=== PATIENT | male | born 1975 | race American Indian/Alaskan Native ===

== ENCOUNTER 2016-08-26 10:38 | Emergency (ER) | payer SELFPAY ==
--- NOTE | 2016-08-26 16:34 | Emergency Department Report ---
HPI - General Chief Complaint: Medical Clearance Time Seen by Provider: 08/26/16 16:20 - HPI HPI: 40-year-old male presents today for a refill for metoprolol 50 mg by mouth twice a day. Patient states that he ran out yesterday and his appointment with [facility] set for September. Patient would like one month supply to last him until then. Denies any medical complaints. Denies fever, chills, nausea, vomiting, chest pain, shortness of breath, abdominal pain. ED Past Medical Hx - Past Medical History Previous Medical History?: Yes Hx Hypertension: Yes Hx Diabetes: Yes - Surgical History Past Surgical History?: No - Social History Smoking Status: Never Smoker Substance Use Type: Alcohol, Prescribed - Medications Home Medications: Home Medications Medication Instructions Recorded Confirmed Last Taken Type Lisinopril [Zestril] 5 mg PO QDAY 07/08/16 07/08/16 Unknown History Metoprolol [Lopressor TAB] 50 mg PO BID #60 tablet 08/26/16 Unknown Rx ED Review of Systems ROS: Stated complaint: HIGH BP MED REFILL Other details as noted in HPI Constitutional: denies: chills, fever, malaise Eyes: denies: eye pain ENT: denies: ear pain, throat pain, congestion Respiratory: denies: cough, shortness of breath, wheezing Cardiovascular: denies: chest pain, palpitations Endocrine: no symptoms reported Gastrointestinal: denies: abdominal pain, nausea, vomiting Skin: denies: rash Neurological: denies: headache, weakness Physical Exam - Physical Exam Vital Signs: Vital Signs 08/26/16 11:10 Temperature 98.1 F Pulse Rate 82 Blood Pressure 148/96 O2 Sat by Pulse 100 Oximetry Physical Exam: GENERAL: The patient is well-developed and well-nourished. Patient is in NAD. HEAD: Normocephalic. Atraumatic. CHEST/LUNGS: Clear to auscultation throughout. HEART/CARDIOVASCULAR: Regular rate and rhythm. ABDOMEN: Abdomen is soft, nontender. No guarding or rebound tenderness. EXTREMITIES: Peripheral pulses intact. Capillary refill less than 2 seconds. NEURO: Alert and oriented x 3. Normal gait. ED Course Vital Signs 08/26/16 11:10 Temperature 98.1 F Pulse Rate 82 Blood Pressure 148/96 O2 Sat by Pulse 100 Oximetry ED Medical Decision Making - Lab Data Vital Signs 08/26/16 11:10 Temperature 98.1 F Pulse Rate 82 Blood Pressure 148/96 O2 Sat by Pulse 100 Oximetry - Medical Decision Making 40-year-old female presents today for metoprolol refill. Explained to the patient that this will become last time we will be refilling his blood pressure medication. Patient was given a one-month supply and is recommended to follow up with primary care provider. Patient is in no acute distress at this time. He will be discharged home and is encouraged to follow up with a primary care provider. He is encouraged to return to the emergency room for any worsening symptoms. Critical care attestation.: If time is entered above; I have spent that time in minutes in the direct care of this critically ill patient, excluding procedure time. ED Disposition Clinical Impression: Medication refill Disposition: DISCHARGED TO HOME OR SELFCARE Is pt being admited?: No Does the pt Need Aspirin: No Condition: Stable Instructions: Hypertension (ED) Additional Instructions: Follow up with primary care provider. Return to the emergency department if symptoms worsen. Prescriptions: Metoprolol [Lopressor TAB] 50 mg PO BID #60 tablet Referrals: PRIMARY CARE [Primary Care Provider] - 3-5 Days [facility] [Outside] - 3-5 Days Forms: Work/School Release Form(ED) Time of Disposition: 16:37
[2016-08-26 16:48] VITALS: BP 150/82
== END 2016-08-26 16:48 | disposition home or self-care (01) ==
LOC: ED 10:38
DX: Z76.0 Encounter for issue of repeat prescription (principal); I10 Essential (primary) hypertension; E11.9 Type 2 diabetes mellitus without complications
CPT/HCPCS: 99282

== ENCOUNTER 2017-11-30 10:27 | Emergency (ER) | payer SELFPAY ==
[2017-11-30] MEDS ORDERED: LOPRESSOR PO ONE (12:35)
--- NOTE | 2017-11-30 12:44 | Emergency Department Report ---
- HPI History of Present Illness: This is a 41-year-old male with a history of blood pressure with takes Lopressor 50 mg twice a day presents here for medication refill. Patient states he ran out of his medication yesterday and has not taken it today. She states he missed his appointment with his primary care and does not have another appointment for another month. Patient brought in his empty bottle of current rx for Lopressor 50 mg. Patient denies any symptoms such as chest pain, shortness of breath, headache , dizziness, blurred vision. - ROS Review of Systems: As noted in HPI - Exam Vital Signs: Vital Signs 11/30/17 10:37 Temperature 98.7 F Pulse Rate 85 Respiratory 18 Rate Blood Pressure 180/100 O2 Sat by Pulse 100 Oximetry Physical Exam: GENERAL: Alert and oriented x3, no apparent distress, Normal Gait, atraumatic. HEAD: Head is normocephalic and a-traumatic. NECK: Supple. Non edematous, No lymphadenopathy or thyromegaly. No C-spine tenderness LUNGS: Symetrical with respiration, No wheezing, no rales or crackles, CTAB. HEART: S1, S2 present, regular rate and rhythm without murmur, no rubs, no gallops. Non tender to palpation SKIN: Warm and dry, No lesions, No ulceration or induration present. MSE screening note: Focused history and physical exam performed. Due to findings the following was ordered: <SERA CARVER A - Last Filed: 11/30/17 13:53> - Exam Vital Signs: Vital Signs 11/30/17 11/30/17 10:37 13:00 Temperature 98.7 F Pulse Rate 85 79 Respiratory 18 Rate Blood Pressure 180/100 158/96 O2 Sat by Pulse 100 Oximetry MSE screening note: Focused history and physical exam performed. Due to findings the following was ordered: <TRINH GLOVER P - Last Filed: 11/30/17 20:24> Chief Complaint: Medical Clearance Stated Complaint: MED RE FILL Time Seen by Provider: 11/30/17 12:33 ED Medical Decision Making - Medical Decision Making 41-year-old male presents for medication refill ED course: Patient received 1 dose of Lopressor in the ED to bring down blood pressure. Blood pressure dropped prior to the ED discharge. Discussed patient to take a second dose at his usual at night. Vital signs are normal patient is in no acute distress. <WENSERA A - Last Filed: 11/30/17 13:53> ED Disposition for MSE Is pt being admited?: No Does the pt Need Aspirin: No Time of Disposition: 12:54 <Isrrael CARVERARIAS A - Last Filed: 11/30/17 13:53> <TRINH GLOVER P - Last Filed: 11/30/17 20:24> Clinical Impression: Medication refill Disposition: TO HOME OR SELFCARE Condition: Stable Instructions: Metoprolol (By mouth), Hypertension (ED) Additional Instructions: Make sure to follow up with the primary care physician as discussed. Take all your medications as you've been prescribed. If you have any worsening symptoms or develop new symptoms please return to ED immediately. Prescriptions: Metoprolol [Lopressor TAB] 50 mg PO BID #60 tablet Referrals: PRIMARY CAREMD [Primary Care Provider] - 3-5 Days BRUNO FAN MD [Referring] - 3-5 Days [facility] [Outside] - 3-5 Days [facility] [Outside] - 3-5 Days Forms: Work/School Release Form(ED)
[2017-11-30 13:01] VITALS: BP 158/96
== END 2017-11-30 12:55 | disposition home or self-care (01) ==
LOC: ED 10:27
DX: Z76.0 Encounter for issue of repeat prescription (principal); I10 Essential (primary) hypertension
CPT/HCPCS: 99282

== ENCOUNTER 2019-07-17 14:39 | Emergency (ER) | payer SELFPAY ==
--- NOTE | 2019-07-17 14:56 | Emergency Department Report ---
Blank Doc - Documentation Documentation: 43-year-old male that presents with frequency urination and generalized weakne ss. This initial assessment/diagnostic orders/clinical plan/treatment(s) is/are subject to change based on patient's health status, clinical progression and re- assessment by fellow clinical providers in the ED. Further treatment and workup at subsequent clinical providers discretion. Patient/guardians urged not to elope from the ED as their condition may be serious if not clinically assessed and managed. Initial orders include: 1- Patient sent to [facility] for further evaluation and treatment 2- labs 3- UA
[2019-07-17 16:44] LABS: Bilirubin,Urine NEG (Negative); Blood,Urine NEG (Negative); Color,Urine Straw (Yellow); Protein,Urine <15 mg/dL mg/dL (Negative); Urobilinogen,Urine < 2.0 mg/dL (<2.0); WBC,Urine < 1.0 /HPF (0.0-6.0)
[2019-07-17 16:54] LABS: Basophils % (Auto) 0.3 % (0.0-1.8); Eosinophils # (Auto) 0.2 K/mm3 (0.0-0.4); Eosinophils % (Auto) 1.3 % (0.0-4.3); Hematocrit 50.1 % (35.5-45.6); Hemoglobin 16.7 gm/dl (11.8-15.2); Lymphocytes % (Auto) 17.1 % (13.4-35.0); Mean Corpuscular HGB Conc 33 % (32-34); Mean Corpuscular Volume 92 fl (84-94); Monocytes # (Auto) 0.7 K/mm3 (0.0-0.8); Monocytes % (Auto) 5.9 % (0.0-7.3); Platelet Count 289 K/mm3 (140-440); Red Blood Count 5.48 M/mm3 (3.65-5.03); Red Cell Distribution Width 13.5 % (13.2-15.2)
[2019-07-17 17:02] LABS: Calcium 9.6 mg/dL (8.4-10.2)
[2019-07-17] MEDS ORDERED: INSULIN REGULAR, HUMAN 100 UNITS/1 ML SUB-Q ONE (18:42)
[2019-07-17] MEDS ORDERED: SODIUM CHLORIDE 0.9% 1000 ML 2,000 ML IV ONE (18:43)
[2019-07-17] MEDS ORDERED: INSULIN REGULAR, HUMAN 100 UNITS/1 ML IV ONE (19:01)
--- NOTE | 2019-07-17 19:12 | Emergency Department Report ---
ED General Adult HPI - General Chief complaint: Urogenital-Male Stated complaint: FREQUENT URINATION Time Seen by Provider: 07/17/19 14:55 Source: patient Mode of arrival: Ambulatory Limitations: No Limitations - History of Present Illness Initial comments: Mr. Aragon is a very pleasant 43-year-old male with history of hypertension and diabetes mellitus type 2 presents with frequent urination and thirst for the past several days. He admits that he has not been eating "right". He denies blurry vision. Denies chest pain or abdominal pain. Gradual onset of symptoms. He has been compliant with metformin 500 mg twice a day. He does not take insulin at this time. He was diagnosed with diabetes 3-4 years ago. He is followed at the [facility]. He takes metoprolol for hypertension. He drinks alcohol once a week. 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 -: Gradual, days(s) (3+ days) Quality: constant Consistency: constant Improves with: none Worsens with: none Associated Symptoms: other (generalized weakness, frequent urination and thirst) - Related Data Home Medications Medication Instructions Recorded Confirmed Last Taken metFORMIN [Glucophage] 500 mg PO BID 09/04/16 09/04/16 Unknown Previous Rx's Medication Instructions Recorded Last Taken Type Insulin Aspart Prot/Aspart(Nf) 30 units SQ BID 30 Days vial 09/07/16 Unknown Rx [NovoLOG Mix 70/30 VIAL] Metoprolol [Lopressor TAB] 50 mg PO BID #60 tablet 11/30/17 Unknown Rx Ibuprofen [Motrin] 600 mg PO Q8H PRN #20 tablet 08/08/18 Unknown Rx methOCARBAMOL [Robaxin TAB] 500 mg PO Q6H PRN #15 tablet 08/08/18 Unknown Rx traMADoL [Ultram] 50 mg PO Q6HR PRN #12 tablet 08/08/18 Unknown Rx Metformin HCl [metFORMIN] 1,000 mg PO BID 30 Days #60 tablet 07/17/19 Unknown Rx Allergies Allergy/AdvReac Type Severity Reaction Status Date / Time No Known Allergies Allergy Verified 11/30/17 10:37 ED Review of Systems ROS: Stated complaint: FREQUENT URINATION Other details as noted in HPI Comment: All other systems reviewed and negative Constitutional: denies: fever, malaise Cardiovascular: denies: chest pain Endocrine: denies: excessive sweating Gastrointestinal: denies: abdominal pain, nausea, vomiting ED Past Medical Hx - Past Medical History Previous Medical History?: Yes Hx Hypertension: Yes Hx Congestive Heart Failure: No Hx Diabetes: Yes Hx Asthma: No Hx COPD: No Hx HIV: No - Family History Family history: hypertension - Social History Smoking Status: Never Smoker Substance Use Type: Alcohol (once a week) - Medications Home Medications: Home Medications Medication Instructions Recorded Confirmed Last Taken Type metFORMIN [Glucophage] 500 mg PO BID 09/04/16 09/04/16 Unknown History Insulin Aspart Prot/Aspart(Nf) 30 units SQ BID 30 Days vial 09/07/16 Unknown Rx [NovoLOG Mix 70/30 VIAL] Metoprolol [Lopressor TAB] 50 mg PO BID #60 tablet 11/30/17 Unknown Rx Ibuprofen [Motrin] 600 mg PO Q8H PRN #20 tablet 08/08/18 Unknown Rx methOCARBAMOL [Robaxin TAB] 500 mg PO Q6H PRN #15 tablet 08/08/18 Unknown Rx traMADoL [Ultram] 50 mg PO Q6HR PRN #12 tablet 08/08/18 Unknown Rx Metformin HCl [metFORMIN] 1,000 mg PO BID 30 Days #60 tablet 07/17/19 Unknown Rx ED Physical Exam - General Limitations: No Limitations General appearance: alert, in no apparent distress, other (appears well moist mucous membranes) - Head Head exam: Present: atraumatic, normocephalic - Eye Eye exam: Present: normal appearance - ENT ENT exam: Present: normal orophraynx, mucous membranes moist - Neck Neck exam: Present: normal inspection, full ROM - Respiratory Respiratory exam: Present: normal lung sounds bilaterally. Absent: respiratory distress, wheezes, rales, rhonchi - Cardiovascular Cardiovascular Exam: Present: regular rate, normal rhythm, normal heart sounds. Absent: systolic murmur, diastolic murmur, rubs, gallop - GI/Abdominal GI/Abdominal exam: Present: soft, normal bowel sounds. Absent: distended, tenderness, guarding, rebound - Rectal Rectal exam: Present: deferred - Extremities Exam Extremities exam: Present: normal inspection - Neurological Exam Neurological exam: Present: alert, oriented X3 - Psychiatric Psychiatric exam: Present: normal affect, normal mood - Skin Skin exam: Present: warm, dry, intact, normal color. Absent: rash ED Course Vital Signs 12/04/2707/17/19 07/17/19 14:55 18:18 18:20 Temperature 98.2 F Pulse Rate 85 Respiratory 18 14 12 Rate Blood Pressure 112/67 O2 Sat by Pulse 96 Oximetry 07/17/19 07/17/19 07/17/19 18:31 18:45 19:01 Temperature Pulse Rate 77 75 77 Respiratory 12 9 L 12 Rate Blood Pressure 131/78 131/78 131/78 O2 Sat by Pulse 99 96 99 Oximetry 07/17/19 07/17/19 07/17/19 19:15 19:31 19:45 Temperature Pulse Rate 77 80 75 Respiratory 10 L 12 12 Rate Blood Pressure 131/78 131/78 131/78 O2 Sat by Pulse 97 98 98 Oximetry 07/17/19 07/17/19 07/17/19 20:00 20:15 20:31 Temperature Pulse Rate 74 74 76 Respiratory 11 L 13 15 Rate Blood Pressure 125/83 125/83 O2 Sat by Pulse 98 98 100 Oximetry 07/17/19 07/17/19 07/17/19 20:45 21:01 21:15 Temperature Pulse Rate 75 74 73 Respiratory 11 L 10 L 10 L Rate Blood Pressure 125/83 125/83 125/83 O2 Sat by Pulse 99 99 100 Oximetry ED Medical Decision Making - Lab Data Result diagrams: 07/17/19 16:20 07/17/19 16:20 - Medical Decision Making Mr. Aragon presents with acute hyperglycemia, increase in anion gap 20, trace ketones. Treated with IV fluid therapy in the emergency department. Also given IV regular insulin. Mr. Aragon appears well hydrated. I have increased Metformin dose to 1000 mg BID. He understands that he will need an additional medication to address diabetes. He understands the need to alter his diet. He will f/u with [facility] next week. Critical care attestation.: If time is entered above; I have spent that time in minutes in the direct care of this critically ill patient, excluding procedure time. ED Disposition Clinical Impression: Acute hyperglycemia Disposition: DC-01 TO HOME OR SELFCARE Is pt being admited?: No Does the pt Need Aspirin: No Condition: Stable Instructions: Diabetes Mellitus Type 2 in Adults (ED) Prescriptions: Metformin HCl [metFORMIN] 1,000 mg PO BID 30 Days #60 tablet Referrals: ANASTACIO PICHARDO MD [Staff Physician] - 3-5 Days Forms: Work/School Release Form(ED)
[2019-07-17 20:20] VITALS: BP 125/83
== END 2019-07-17 22:55 | disposition home or self-care (01) ==
LOC: ED 14:39
DX: E11.65 Type 2 diabetes mellitus with hyperglycemia (principal); I10 Essential (primary) hypertension; Z79.899 Other long term (current) drug therapy
CPT/HCPCS: 36415; 80048; 81001; 82962; 85025; 96361; 96374; 99283; J7030; J1815

== ENCOUNTER 2019-07-31 11:44 | Inpatient (IN) | payer OTHER ==
--- NOTE | 2019-07-31 12:40 | Event Note ---
ED Screening Note Date of service: 07/31/19 Time: 12:37 ED Screening Note: Pt c/o urinary frequency and not feeling x 1 week DM2, compliant with metformin Denies CP/SOB here recently for the same This initial assessment/diagnostic orders/clinical plan/treatment(s) is/are subject to change based on patients health status, clinical progression and re- assessment by fellow clinical providers in the ED. Further treatment and workup at subsequent clinical providers discretion. Patient/guardian urged not to elope from the ED as their condition may be serious if not clinically assessed and managed. Initial orders include: MAIN labs
[2019-07-31 13:48] LABS: Basophils # (Auto) 0.1 K/mm3 (0.0-0.1); Basophils % (Auto) 0.7 % (0.0-1.8); Eosinophils # (Auto) 0.2 K/mm3 (0.0-0.4); Eosinophils % (Auto) 1.2 % (0.0-4.3); Hematocrit 46.2 % (35.5-45.6); Hemoglobin 15.9 gm/dl (11.8-15.2); Lymphocytes # (Auto) 2.3 K/mm3 (1.2-5.4); Mean Corpuscular HGB Conc 34 % (32-34); Mean Corpuscular Volume 90 fl (84-94); Monocytes # (Auto) 0.7 K/mm3 (0.0-0.8); Monocytes % (Auto) 5.4 % (0.0-7.3); Platelet Count 319 K/mm3 (140-440); Red Blood Count 5.15 M/mm3 (3.65-5.03); Red Cell Distribution Width 13.1 % (13.2-15.2)
[2019-07-31 14:04] LABS: Alanine Aminotransferase 16 units/L (7-56); Albumin 4.5 g/dL (3.9-5); BUN/Creatinine Ratio 17; Blood Urea Nitrogen 32 mg/dL (9-20); Calcium 9.6 mg/dL (8.4-10.2); Hemolysis Index 9
[2019-07-31] MEDS ORDERED: SODIUM CHLORIDE 0.9% 1000 ML 1,000 ML IV ONE ×3 (14:24→16:44)
[2019-07-31 14:25] LABS: Bilirubin,Urine NEG (Negative); Blood,Urine SM (Negative); Color,Urine Straw (Yellow); Mucus,Urine FEW /HPF; Protein,Urine <15 mg/dL mg/dL (Negative); Urobilinogen,Urine < 2.0 mg/dL (<2.0); WBC,Urine < 1.0 /HPF (0.0-6.0)
[2019-07-31] MEDS ORDERED: INSULIN REGULAR, HUMAN 100 UNITS/1 ML IV ONE (14:25)
--- NOTE | 2019-07-31 16:59 | Emergency Department Report ---
- General Chief complaint: Hyperglycemia Stated complaint: HYPERGLYCEMIA Time Seen by Provider: 07/31/19 12:36 Source: patient Mode of arrival: Ambulatory Limitations: No Limitations - History of Present Illness Initial comments: 43 year old male with a past medical history diabetes and hypertension presents to the hospital complaining of generalized weakness and continued polyuria and tingling to extremities. Patient feels like his sugar is high but does not have a glucometer to confirm his glucose. Patient was seen here July 27 with similar symptoms and reported compliance of metformin 500 mg twice a day. Metformin was increased to 1000 mg twice a day but he does not feel any better. Patient last took his medication last night without a dose today. He denies na usea, vomiting, fever, or dysuria. Contrary to insulin listed on August 2016 discharge patient denies being on insulin in the past. PMD none Severity scale (0 -10): 4 - Related Data Home Medications Medication Instructions Recorded Confirmed Last Taken metFORMIN [Glucophage] 500 mg PO BID 09/04/16 09/04/16 Unknown Previous Rx's Medication Instructions Recorded Last Taken Type Insulin Aspart Prot/Aspart(Nf) 30 units SQ BID 30 Days vial 09/07/16 Unknown Rx [NovoLOG Mix 70/30 VIAL] Metoprolol [Lopressor TAB] 50 mg PO BID #60 tablet 11/30/17 Unknown Rx Ibuprofen [Motrin] 600 mg PO Q8H PRN #20 tablet 08/08/18 Unknown Rx methOCARBAMOL [Robaxin TAB] 500 mg PO Q6H PRN #15 tablet 08/08/18 Unknown Rx traMADoL [Ultram] 50 mg PO Q6HR PRN #12 tablet 08/08/18 Unknown Rx Metformin HCl [metFORMIN] 1,000 mg PO BID 30 Days #60 tablet 07/17/19 Unknown Rx Allergies Allergy/AdvReac Type Severity Reaction Status Date / Time No Known Allergies Allergy Verified 11/30/17 10:37 ED Review of Systems ROS: Stated complaint: HYPERGLYCEMIA Other details as noted in HPI Comment: All other systems reviewed and negative ED Past Medical Hx - Past Medical History Previous Medical History?: Yes Hx Hypertension: Yes Hx Congestive Heart Failure: No Hx Diabetes: Yes Hx Asthma: No Hx COPD: No Hx HIV: No - Social History Smoking Status: Never Smoker Substance Use Type: None - Medications Home Medications: Home Medications Medication Instructions Recorded Confirmed Last Taken Type metFORMIN [Glucophage] 500 mg PO BID 09/04/16 09/04/16 Unknown History Insulin Aspart Prot/Aspart(Nf) 30 units SQ BID 30 Days vial 09/07/16 Unknown Rx [NovoLOG Mix 70/30 VIAL] Metoprolol [Lopressor TAB] 50 mg PO BID #60 tablet 11/30/17 Unknown Rx Ibuprofen [Motrin] 600 mg PO Q8H PRN #20 tablet 08/08/18 Unknown Rx methOCARBAMOL [Robaxin TAB] 500 mg PO Q6H PRN #15 tablet 08/08/18 Unknown Rx traMADoL [Ultram] 50 mg PO Q6HR PRN #12 tablet 08/08/18 Unknown Rx Metformin HCl [metFORMIN] 1,000 mg PO BID 30 Days #60 tablet 07/17/19 Unknown Rx ED Physical Exam - General Limitations: No Limitations - Other Other exam information: General: No acute distress Head: Atraumatic Eyes: normal appearance ENT: Moist mucous membranes Neck: Normal appearance, no midline tenderness Chest: Clear to auscultation bilaterally CV: Regular rate and rhythm Abdomen: Soft, normal bowel sounds, nontender, nondistended, no rebound or guarding Back: Normal inspection Extremity: Normal inspection infection, full range of motion Neuro: Alert O x 3, no facial asymmetry, speech clear, no gross motor sensory deficit Psych: Appropriate behavior Skin: No rash ED Course Vital Signs 07/31/19 07/31/19 07/31/19 12:37 14:32 14:35 Temperature 98.5 F 98.1 F Pulse Rate 73 81 Respiratory 18 18 Rate Blood Pressure 128/77 Blood Pressure 109/72 [Right] O2 Sat by Pulse 100 97 100 Oximetry 07/31/19 07/31/19 07/31/19 14:46 15:00 15:16 Temperature Pulse Rate 83 80 76 Respiratory 14 14 12 Rate Blood Pressure 109/72 119/65 119/65 Blood Pressure [Right] O2 Sat by Pulse 97 97 98 Oximetry ED Medical Decision Making - Lab Data Result diagrams: 07/31/19 13:08 07/31/19 13:08 Lab Results 07/31/19 07/31/19 07/31/19 Range/Units 12:22 12:41 13:08 WBC 13.5 H (4.5-11.0) K/mm3 RBC 5.15 H (3.65-5.03) M/mm3 Hgb 15.9 H (11.8-15.2) gm/dl Hct 46.2 H (35.5-45.6) % MCV 90 (84-94) fl MCH 31 (28-32) pg MCHC 34 (32-34) % RDW 13.1 L (13.2-15.2) % Plt Count 319 (140-440) K/mm3 Lymph % (Auto) 17.0 (13.4-35.0) % [place] % (Auto) 5.4 (0.0-7.3) % Eos % (Auto) 1.2 (0.0-4.3) % Baso % (Auto) 0.7 (0.0-1.8) % Lymph # 2.3 (1.2-5.4) K/mm3 [place] # 0.7 (0.0-0.8) K/mm3 Eos # 0.2 (0.0-0.4) K/mm3 Baso # 0.1 (0.0-0.1) K/mm3 Seg Neutrophils % 75.7 H (40.0-70.0) % Seg Neutrophils # 10.2 H (1.8-7.7) K/mm3 VBG pH (7.320-7.420) Sodium (137-145) mmol/L Potassium (3.6-5.0) mmol/L Chloride (98-107) mmol/L Carbon Dioxide (22-30) mmol/L Anion Gap mmol/L BUN (9-20) mg/dL Creatinine (0.8-1.5) mg/dL Estimated GFR ml/min BUN/Creatinine Ratio % Glucose (75-100) mg/dL POC Glucose > 500 H (70-105) Ketones Quantitative (Negative) Calcium (8.4-10.2) mg/dL Total Bilirubin (0.1-1.2) mg/dL AST (5-40) units/L ALT (7-56) units/L Alkaline Phosphatase (35-129) units/L Total Protein (6.3-8.2) g/dL Albumin (3.9-5) g/dL Albumin/Globulin Ratio % Urine Color Straw (Yellow) Urine Turbidity Clear (Clear) Urine pH 5.0 (5.0-7.0) Ur Specific [place] 1.026 (1.003-1.030) Urine Protein <15 mg/dl (Negative) mg/dL Urine Glucose (UA) >=500 (Negative) mg/dL Urine Ketones 20 (Negative) mg/dL Urine Blood Sm (Negative) Urine Nitrite Neg (Negative) Urine Bilirubin Neg (Negative) Urine Urobilinogen < 2.0 (<2.0) mg/dL Ur Leukocyte Esterase Neg (Negative) Urine WBC (Auto) < 1.0 (0.0-6.0) /HPF Urine RBC (Auto) 1.0 (0.0-6.0) /HPF Urine Mucus Few /HPF 07/31/19 07/31/19 07/31/19 Range/Units 13:08 16:52 Unknown WBC (4.5-11.0) K/mm3 RBC (3.65-5.03) M/mm3 Hgb (11.8-15.2) gm/dl Hct (35.5-45.6) % MCV (84-94) fl MCH (28-32) pg MCHC (32-34) % RDW (13.2-15.2) % Plt Count (140-440) K/mm3 Lymph % (Auto) (13.4-35.0) % [place] % (Auto) (0.0-7.3) % Eos % (Auto) (0.0-4.3) % Baso % (Auto) (0.0-1.8) % Lymph # (1.2-5.4) K/mm3 [place] # (0.0-0.8) K/mm3 Eos # (0.0-0.4) K/mm3 Baso # (0.0-0.1) K/mm3 Seg Neutrophils % (40.0-70.0) % Seg Neutrophils # (1.8-7.7) K/mm3 VBG pH 7.321 (7.320-7.420) Sodium 124 L (137-145) mmol/L Potassium 4.7 (3.6-5.0) mmol/L Chloride 86.9 L (98-107) mmol/L Carbon Dioxide 19 L (22-30) mmol/L Anion Gap 23 mmol/L BUN 32 H (9-20) mg/dL Creatinine 1.9 H (0.8-1.5) mg/dL Estimated GFR 47 ml/min BUN/Creatinine Ratio 17 % Glucose 684 H* (75-100) mg/dL POC Glucose 366 H (70-105) Ketones Quantitative Negative (Negative) Calcium 9.6 (8.4-10.2) mg/dL Total Bilirubin 0.40 (0.1-1.2) mg/dL AST 12 (5-40) units/L ALT 16 (7-56) units/L Alkaline Phosphatase 117 (35-129) units/L Total Protein 7.9 (6.3-8.2) g/dL Albumin 4.5 (3.9-5) g/dL Albumin/Globulin Ratio 1.3 % Urine Color (Yellow) Urine Turbidity (Clear) Urine pH (5.0-7.0) Ur Specific [place] (1.003-1.030) Urine Protein (Negative) mg/dL Urine Glucose (UA) (Negative) mg/dL Urine Ketones (Negative) mg/dL Urine Blood (Negative) Urine Nitrite (Negative) Urine Bilirubin (Negative) Urine Urobilinogen (<2.0) mg/dL Ur Leukocyte Esterase (Negative) Urine WBC (Auto) (0.0-6.0) /HPF Urine RBC (Auto) (0.0-6.0) /HPF Urine Mucus /HPF - Medical Decision Making Is a slightly runny renal insufficiency with elevated BUN/creatinine ratio suggesting dehydration. Patient presents for hyperglycemia with ketosis with normal venous pH. Mild DKA/dehydration, renal insufficiency suspected. Patient treated in the ED with insulin and normal saline with some improvement and glucose level. Case discussed with hospitalist for admission. Critical Care Time: No Critical care attestation.: If time is entered above; I have spent that time in minutes in the direct care of this critically ill patient, excluding procedure time. ED Disposition Clinical Impression: DKA (diabetic ketoacidoses), Acute on chronic renal insufficiency Disposition: OP ADMIT IP TO THIS HOSP Is pt being admited?: Yes Condition: Stable Time of Disposition: 17:13 (Dr Rojo/hosp)
[2019-07-31] MEDS ORDERED: HYDROmorphone 1 MG/1 ML INJ IV PRN (22:02)
[2019-07-31] MEDS ORDERED: ACETAMINOPHEN 325 MG TAB PO PRN (22:02)
[2019-07-31] MEDS ORDERED: oxyCODONE /ACETAMINOPHEN 5-325MG TAB PO PRN (22:02)
[2019-07-31] MEDS ORDERED: ZOLPIDEM 5 MG TAB PO PRN (22:02)
[2019-07-31] MEDS ORDERED: METOCLOPRAMIDE 10 MG/2 ML INJ IV PRN (22:02)
[2019-07-31] MEDS ORDERED: ONDANSETRON 4 MG/2 ML INJ IV PRN (22:02)
[2019-08-01 00:29] LABS: BUN/Creatinine Ratio 15; Blood Urea Nitrogen 21 mg/dL (9-20); Calcium 8.3 mg/dL (8.4-10.2); Hemolysis Index 16
[2019-08-01] MEDS: SODIUM CHLORIDE 0.9% 1000 ML 1,000 ML IV SCH ×3 (00:58→22:10)
[2019-08-01] MEDS: INSULIN LISPRO 100 UNIT/ML SUB-Q SCH ×6 (01:53→22:07)
[2019-08-01 08:38] LABS: Hematocrit 40.9 % (35.5-45.6); Hemoglobin 13.9 gm/dl (11.8-15.2); Mean Corpuscular HGB Conc 34 % (32-34); Mean Corpuscular Volume 88 fl (84-94); Platelet Count 245 K/mm3 (140-440); Red Blood Count 4.63 M/mm3 (3.65-5.03); Red Cell Distribution Width 12.8 % (13.2-15.2)
[2019-08-01 08:53] LABS: Basophils # (Auto) 0.1 K/mm3 (0.0-0.1); Basophils % (Auto) 0.7 % (0.0-1.8); Eosinophils # (Auto) 0.2 K/mm3 (0.0-0.4); Eosinophils % (Auto) 2.6 % (0.0-4.3); Lymphocytes # (Auto) 2.2 K/mm3 (1.2-5.4); Lymphocytes % (Auto) 26.6 % (13.4-35.0); Monocytes # (Auto) 0.4 K/mm3 (0.0-0.8); Monocytes % (Auto) 5.3 % (0.0-7.3)
[2019-08-01 09:05] LABS: Alanine Aminotransferase 12 units/L (7-56); Albumin 3.6 g/dL (3.9-5); BUN/Creatinine Ratio 15; Blood Urea Nitrogen 19 mg/dL (9-20); Calcium 8.5 mg/dL (8.4-10.2); Hemolysis Index 5
[2019-08-01] MEDS: INSULIN NPH/REGULAR 70/30 INJ SUB-Q SCH ×2 (09:09→18:21)
[2019-08-01] MEDS ORDERED: FAMOTIDINE 20 MG/2 ML INJ IV SCH (10:00)
[2019-08-01] MEDS ORDERED: FLU VACC QUAD 2019-20 (3 YR UP)/PF 60 MCG/0.5 ML SYRINGE IM ONE (12:00)
--- NOTE | 2019-08-01 13:02 | Event Note ---
Date: 07/31/19 See history and physical in the reports Uncontrolled diabetes Inadequately treated Needs to be on insulin Patient counseled
--- NOTE | 2019-08-01 14:23 | Progress Note ---
Assessment and Plan - Patient Problems (1) Acute on chronic renal insufficiency Current Visit: Yes Status: Acute Plan to address problem: Improved (2) Uncontrolled diabetes mellitus Current Visit: Yes Status: Acute Qualifiers: Diabetes mellitus type: type 2 Plan to address problem: Improving Patient being educated about SQ Insulin 70/30 20 units bid (3) Hyponatremia Current Visit: Yes Status: Acute Plan to address problem: Improved (4) DVT prophylaxis Current Visit: Yes Status: Acute Plan to address problem: Heparin 5000 sq q 12h and GI prophylaxis Subjective Date of service: 08/01/19 Objective - Constitutional Vitals: Vital Signs - 12hr 08/01/19 08/01/19 05:26 11:37 Temperature 97.4 F L 98.0 F Pulse Rate 67 69 Respiratory 18 20 Rate Blood Pressure 135/87 139/91 O2 Sat by Pulse 97 97 Oximetry - Labs CBC & Chem 7: 08/01/19 07:20 08/01/19 07:20 Labs: Abnormal lab results 07/31/19 07/31/19 07/31/19 Range/Units 12: 16:52 19:35 RDW (13.2-15.2) % Sodium (137-145) mmol/L Chloride (98-107) mmol/L Carbon Dioxide (22-30) mmol/L BUN (9-20) mg/dL Glucose (75-100) mg/dL POC Glucose > 500 H 366 H 301 H (70-105) Hemoglobin A1c (4-6) % Calcium (8.4-10.2) mg/dL Albumin (3.9-5) g/dL 07/31/19 07/31/19 07/31/19 Range/Units 21:53 23:55 23:55 RDW (13.2-15.2) % Sodium 130 L (137-145) mmol/L Chloride 97.6 L (98-107) mmol/L Carbon Dioxide 21 L (22-30) mmol/L BUN 21 H (9-20) mg/dL Glucose 465 H (75-100) mg/dL POC Glucose 245 H (70-105) Hemoglobin A1c 12.7 H (4-6) % Calcium 8.3 L (8.4-10.2) mg/dL Albumin (3.9-5) g/dL 08/01/19 08/01/19 08/01/19 Range/Units 01:57 06:38 07:20 RDW 12.8 L (13.2-15.2) % Sodium (137-145) mmol/L Chloride (98-107) mmol/L Carbon Dioxide (22-30) mmol/L BUN (9-20) mg/dL Glucose (75-100) mg/dL POC Glucose 337 H 226 H (70-105) Hemoglobin A1c (4-6) % Calcium (8.4-10.2) mg/dL Albumin (3.9-5) g/dL 08/01/19 08/01/19 Range/Units 07:20 10:41 RDW (13.2-15.2) % Sodium 136 L (137-145) mmol/L Chloride (98-107) mmol/L Carbon Dioxide (22-30) mmol/L BUN (9-20) mg/dL Glucose 254 H (75-100) mg/dL POC Glucose 297 H (70-105) Hemoglobin A1c (4-6) % Calcium (8.4-10.2) mg/dL Albumin 3.6 L (3.9-5) g/dL
--- NOTE | 2019-08-01 15:19 | History and Physical Report ---
CHIEF COMPLAINT: High blood glucose levels. HISTORY OF PRESENT ILLNESS: This is a 43-year-old male with history of diabetes and hypertension, on metformin; comes in for generalized weakness and increasing polyuria and tingling in both lower extremities. The patient had checked his blood glucose and it was very high. The patient takes metformin 500 mg twice a day, increased it to 1000 mg twice a day, but does not feel any better. Denies nausea, vomiting, fever or dysuria. The patient does not take any insulin. No fever or chills. Feels weak. Has severe polyuria, polyphagia and also polydipsia. Does not check his blood glucose level on a regular basis. PAST MEDICAL HISTORY: Significant for: 1. Type 2 diabetes. 2. Hypertension. 3. Muscle spasms. PAST SURGICAL HISTORY: None. SOCIAL HISTORY: Does not smoke. FAMILY HISTORY: Hypertension. REVIEW OF SYSTEMS: Significant for generalized weakness. A 14-point review of systems negative. PHYSICAL EXAMINATION: GENERAL: Middle-aged male, cooperative with examination. VITAL SIGNS: Temperature 98.5, pulse is 73, respiratory rate is 18, blood pressure 128/77. HEENT: Dry mucous membranes. NECK: Supple. No lymphadenopathy, no thyromegaly. LUNGS: Clear to auscultation and percussion. Good air entry. CARDIOVASCULAR: S1, S2 heard. No gallop, no murmur, no rub. Apical impulse in left fifth intercostal space and midclavicular line. ABDOMEN: Soft and benign. No hepatosplenomegaly, no guarding, no rigidity. Hernial orifices are normal. EXTREMITIES: Good pedal pulses. No pedal edema. CENTRAL NERVOUS SYSTEM: Alert and oriented x 4. Nonfocal exam. SKIN: Normal. LABORATORY DATA: Significant for glucose of 684. Sodium is 124. BUN and creatinine of 32 and 1.9. CBC shows white count of 13,500. H and H is 15.9 and 46.2. Urine shows more than 500, but ketones only 20. ASSESSMENT AND PLAN: 1. Severely uncontrolled diabetes. The patient was not started on intravenous insulin because anion gap was not high, more consistent with uncontrolled diabetes. No hyperosmolar state. The patient started on a frequent Accu-Cheks. Also, Novolin 70/30 at 15-20 units twice a day. The patient was educated about insulin and the need to take insulin on a regular basis. 2. Hyponatremia secondary to severe hyperglycemia, pseudohyponatremia. Should correct with correction of blood glucose levels. 3. Acute kidney injury secondary to vasomotor nephropathy and dehydration. Should correct with intravenous fluids. 4. Deep venous thrombosis prophylaxis, heparin 5000 q. 12. In summary, the patient has: 1. Severely uncontrolled diabetes. 2. Acute kidney injury secondary to severe dehydration, tertiary to uncontrolled blood glucose levels. 3. Hyponatremia, probably pseudohyponatremia. 4. Leukocytosis secondary to demyelination. JOB# [id number] VSM/NTS
[2019-08-01] MEDS ORDERED: WATER FOR INJ Sterile (PF) 10 ML ONE (18:10)
[2019-08-01] MEDS: FAMOTIDINE 20 MG TAB PO SCH (22:07)
[2019-08-02] MEDS: INSULIN LISPRO 100 UNIT/ML SUB-Q SCH ×5 (03:15→16:30)
[2019-08-02] MEDS: FAMOTIDINE 20 MG TAB PO SCH ×2 (08:53→13:27)
[2019-08-02] MEDS: INSULIN NPH/REGULAR 70/30 INJ SUB-Q SCH ×2 (08:53→17:11)
[2019-08-02] MEDS: SODIUM CHLORIDE 0.9% 1000 ML 1,000 ML IV SCH (08:54)
[2019-08-02 11:32] VITALS: BP 159/91
--- NOTE | 2019-08-02 13:49 | Discharge Summary ---
Providers - Providers Date of Admission: 07/31/19 18:27 Date of discharge: 08/02/19 Attending physician: FREDI ELENA 07/31/19 22:03 Consult to Dietitian/Nutrition [CONS] Routine Physician Instructions: Reason For Exam: Uncontrolled diabetes Reason for Consult: Diet education Primary care physician: [employer] Hospitalization Condition: Stable Hospital course: 43 year old male with a past medical history diabetes and hypertension presents to the hospital complaining of generalized weakness and continued polyuria and tingling to extremities. Patient feels like his sugar is high but does not have a glucometer to confirm his glucose. Patient was seen here July 27 with similar symptoms and reported compliance of metformin 500 mg twice a day. Metformin was increased to 1000 mg twice a day but he does not feel any better. Patient last took his medication last night without a dose today. He denies nausea, vomiting, fever, or dysuria. Contrary to insulin listed on August 2016 discharge patient denies being on insulin in the past. PMD none (1) Acute on chronic renal insufficiency Current Visit: Yes Status: Acute Plan to address problem: Improved (2) Uncontrolled diabetes mellitus Current Visit: Yes Status: Acute Qualifiers: Diabetes mellitus type: type 2 Plan to address problem: Improving Patient being educated about SQ Insulin 70/30 20 units bid Being discharged on 22 units bid (3) Hyponatremia Current Visit: Yes Status: Acute Plan to address problem: Improved Disposition: DC-01 TO HOME OR SELFCARE Core Measure Documentation - Palliative Care Palliative Care/ Comfort Measures: Not Applicable - Core Measures Any of the following diagnoses?: none Exam - Constitutional Vitals: Temp Pulse Resp BP Pulse Ox 97.7 F 70 20 159/91 98 08/02/19 11:10 08/02/19 11:10 08/02/19 11:10 08/02/19 11:10 08/02/19 11:10 General appearance: Present: no acute distress, well-nourished - EENT Eyes: Present: PERRL ENT: hearing intact, clear oral mucosa - Neck Neck: Present: supple, normal ROM - Respiratory Respiratory effort: normal Respiratory: bilateral: CTA - Cardiovascular Heart rate: 78 Rhythm: regular Heart Sounds: Present: S1 & S2. Absent: rub, click - Extremities Extremities: no ischemia, pulses symmetrical, No edema Peripheral Pulses: within normal limits - Abdominal General gastrointestinal: Present: soft, non-tender, non-distended, normal bowel sounds Male genitourinary: Present: normal - Integumentary Integumentary: Present: clear, warm, dry - Musculoskeletal Musculoskeletal: gait normal, strength equal bilaterally - Psychiatric Psychiatric: appropriate mood/affect, intact judgment & insight - Neurologic Neurologic: CNII-XII intact, moves all extremities Plan Activity: no restrictions Diet: diabetic Follow up with: PRIMARY CAREMD [Primary Care Provider] - 3-5 Days FREDI ELENA MD [Staff Physician] - 7 Days
== END 2019-08-02 18:55 | disposition home or self-care (01) | DRG 683 ==
LOC: ED 11:44 → 3A 18:27
PROVIDERS: ADMIT Internal Medicine; ATTEND Internal Medicine
DX: N17.0 Acute kidney failure with tubular necrosis (principal); E87.1 Hypo-osmolality and hyponatremia; E11.22 Type 2 diabetes mellitus with diabetic chronic kidney disease; N18.9 Chronic kidney disease, unspecified; I12.9 Hypertensive chronic kidney disease with stage 1 through stage 4 chronic kidney disease, or unspecified chronic kidney disease; E86.0 Dehydration; D72.829 Elevated white blood cell count, unspecified; Z79.899 Other long term (current) drug therapy; Z79.4 Long term (current) use of insulin; Z82.49 Family history of ischemic heart disease and other diseases of the circulatory system
CPT/HCPCS: 36415; 80048; 80053; 81001; 82010; 82805; 82962; 83036; 85025; 90686; 96361; 96374; G0378; J1815; J7030